=== PATIENT | female | born 1990 | race African-American/Black ===

== ENCOUNTER 2022-09-12 03:22 | Emergency (ER) | payer OTHER ==
[~2022-09-12] VITALS: Ht 162.6 cm; Wt 59.0 kg
[2022-09-12 03:28] VITALS: BP 150/100
[2022-09-12 05:57] LABS: HEMATOCRIT. 37.7 % (36.0-48.0); HEMOGLOBIN. 12.6 g/dL (12.0-16.0); MEAN CORPUSCULAR HEMOGLOBIN 29.5 pg (28.0-32.0); MEAN CORPUSCULAR VOLUME 88.2 fL (81.0-99.0); MEAN PLATELET VOLUME 7.6 fl (7.4-10.4); PLATELET 424 x1000/uL (130-400); RED BLOOD CELL COUNT 4.28 mill/uL (4.2-5.4); RED CELL DISTRIBUTION WIDTH 13.6 % (11.6-14.6)
[2022-09-12 06:03] LABS: CHLORIDE 107 mEq/L (98-107)
[2022-09-12 06:12] LABS: ETHANOL BLOOD < 10 mg/dL
[2022-09-12 06:30] LABS: HCG SCREEN NEGATIVE
[2022-09-12 07:22] LABS: PLATELET ESTIMATE INCREASED
== END 2022-09-12 07:31 | disposition left against medical advice (07) ==
LOC: ER 03:22
DX: Z53.21 Procedure and treatment not carried out due to patient leaving prior to being seen by health care provider (principal)
CPT/HCPCS: 36415; 80053; 80320; 84703; 85025; 99281; G0480